=== PATIENT | female | born 1995 | race Caucasian/White ===

== ENCOUNTER 2017-07-18 18:09 | Emergency (ER) | payer OTHER ==
[2017-07-18 18:19] VITALS: BP 135/75; PULSE 80; TEMP 98.2; BMI 28.3
[2017-07-18] MEDS ORDERED: KETOROLAC TROMETHAMINE 30 MG/1 ML VIAL IM ONE (19:13)
[2017-07-18] MEDS ORDERED: KETOROLAC TROMETHAMINE 30 MG/1 ML VIAL ONE (19:14)
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
== END 2017-07-18 20:25 | disposition home or self-care (01) ==
LOC: JERFT 18:09
PROC: 3E0233Z Introduction of Anti-inflammatory into Muscle, Percutaneous Approach (ICD-10-PCS; principal; 2017-07-18)
DX: M54.5 Low back pain (principal); V49.59XA Passenger injured in collision with other motor vehicles in traffic accident, initial encounter; Y92.488 Other paved roadways as the place of occurrence of the external cause; Y93.89 Activity, other specified; J30.2 Other seasonal allergic rhinitis; Z87.09 Personal history of other diseases of the respiratory system
CPT/HCPCS: 96372; 99281-25